=== PATIENT | male | born 1930 | race Caucasian/White ===

== ENCOUNTER 2016-08-03 10:38 | Inpatient (IN) | payer MEDICARE ==
--- NOTE | ~2016-08-03 | CN ---
Consultation Report [facility] [address] [place]. [address] NAME: SHAUN CARLOS : 30 STATUS : ADM Adrian PAT#: [id number] AGE: 86 ADM/REG DATE : 08/03/16 MR#: [id number] REPORT SERV DATE: 08/04/16 DICTATED BY: KERMIT SEYMOUR DATE: 08/03/16 REPORT STATUS : Draft TRANSCRIBED BY: DANIEL DATE: 08/03/16 UROLOGY CONSULT DATE OF CONSULTATION: This consult is from Dr. Gonzales regarding gross hematuria and right ureteral finding on CT scan. CHIEF COMPLAINT: Blood in my urine. HISTORY: This is a long-time patient of Dr. Robbins for gross hematuria intermittently as well as BPH. He has pancytopenia for which he sees Dr. Jose Cortes. He was last worked up for his hematuria with a cytology and cystoscopy in January of last year. This was positive only for BPH. He presents today after a 3-day history of gross hematuria. The patient states that he was not having any dysuria prior to the hematuria. On presentation to the emergency room, his INR was 5.0. He was also complaining of pain in his lower abdomen, specifically on the right side. He also has a productive cough. He denies any difficulty passing his urine. He also denies any clots in his urine. He is admitted to the Hospitalist Service and we are consulted. His CT scan officially shows mild right hydronephrosis. I also see some perinephric stranding. They come in on some hypodense material in the region of the right ureteropelvic junction and proximal ureter. They state this may represent a hematoma, blood products in the renal collecting system, or underlying mass. PAST MEDICAL HISTORY: Chronic pancytopenia, intermittent gross hematuria, BPH, coronary artery disease, obstructive sleep apnea requiring CPAP, hyperlipidemia, gastroesophageal reflux disease, Turner's esophagus, paroxysmal atrial fibrillation, depression, remote TIA, back pain chronic, history of L1 compression fracture, history of a pacer and AICD, and chronic kidney disease. PAST SURGICAL HISTORY: Coronary artery bypass grafting x3, pacer AICD placement, kyphoplasty, and coronary artery stents. ALLERGIES: NO KNOWN DRUG ALLERGIES. MEDICATIONS: At home; aspirin 81 mg a day, Lipitor, calcium with vitamin D, vitamin D, Klonopin, Benadryl, Nexium, Proscar, furosemide, isosorbide mononitrate, oxycodone 15 mg four times daily as needed, Zoloft, and Coumadin 3.5 mg a day. REVIEW OF SYSTEMS: GENERAL: Denies fever, chills. NEUROLOGIC: As above. HEART: As above. GI: Denies symptoms. : As above. Consultation Report [address] [place]. [address] NAME: SHAUN CARLOS : 30 STATUS : ADM Adrian PAT#: [id number] AGE: 86 ADM/REG DATE : 08/03/16 MR#: [id number] REPORT SERV DATE: 08/04/16 DICTATED BY: KERMIT SEYMOUR DATE: 08/03/16 REPORT STATUS : Draft TRANSCRIBED BY: DANIEL DATE: 08/03/16 MUSCULOSKELETAL: As above. LUNGS: As above. PHYSICAL EXAMINATION: VITAL SIGNS: Temperature 97.8, pulse of 87, respirations of 17. He is saturating 93% on 2 L nasal cannula. Blood pressure is 141/86. GENERAL: He is in no acute distress. NEUROLOGIC: Alert and oriented x3. PSYCHIATRIC: Appropriate. HEENT: Facial features symmetric. Eyes, sclerae anicteric. NECK: Supple. LUNGS: He has mild rhonchi bilaterally. EXTREMITIES: No edema. CARDIOVASCULAR: Irregularly irregular rhythm. ABDOMEN: Soft, nontender. His bladder is not palpable. : He has a normal circumcised phallus, bilateral descended testes without masses which are nontender. RECTAL: Deferred. LABORATORY STUDIES: White count of 1.7, hemoglobin 11.8, hematocrit of 35, platelet count of 158. INR of 5, PT 46.1, PTT of 63.2. Creatinine of 1.38, BUN of 20. Urinalysis was positive for nitrites, negative for leukocyte esterase, greater than 182 red blood cells, 0 white blood cells, rare bacteria. PH of 6, 100 protein, [address] scan as stated above. PROCEDURE IN DETAIL: After sterile prep and drape, a 22-Kazakh 3-way catheter was passed into the patient's bladder. The balloon was inflated with 30 mL of sterile water and seated at the bladder neck. 100 mL of very concentrated cloudy foul-smelling urine was drained from the patient's bladder. A portion of this was collected in a urinalysis cup to be sent to the microbiology lab for Gram-stain and culture. I hand irrigated the patient's bladder with 100 mL of sterile water. The irrigant cleared completely after the first syringe. No clots were noted. I placed the catheter on continuous bladder irrigation. Even at the slowest drip, the urine was the same color as the irrigant. IMPRESSION: 1. Urinary tract infection. 2. Hematuria/concentrated urine. 3. Uncertain finding in the right proximal ureter. Perhaps a sloughed papilla? PLAN: 1. I collected a catheterized urine specimen for Gram-stain and culture. Maybe the Gram- stain can help guide antibiotic therapy over the weekend, waiting for culture results. 2. Continue the continuous bladder irrigation through the night. We may be able to discontinue this tomorrow if the urine remains completely clear. 3. After his infection is treated and his INR is corrected, he will need a repeat CT scan Consultation Report [address] [address] NAME: SHAUN CARLOS : 30 STATUS : ADM Adrian PAT#: [id number] AGE: 86 ADM/REG DATE : 08/03/16 MR#: [id number] REPORT SERV DATE: 08/04/16 DICTATED BY: KERMIT SEYMOUR DATE: 08/03/16 REPORT STATUS : Draft TRANSCRIBED BY: DANIEL DATE: 08/03/16 to re-evaluate the right ureteral finding. VAIBHAV/DANIEL Kermit Seymour M.D. / [id number] CC: Mana Gonzales M.D.
--- NOTE | ~2016-08-03 | HP ---
History And Physical [facility] [address] [place]. [address] NAME: SHAUN CARLOS : 30 STATUS : ADM Adrian PAT#: [id number] AGE: 86 ADM/REG DATE : 08/03/16 MR#: [id number] REPORT SERV DATE: 08/03/16 DICTATED BY: LILIANE PIAZ DATE: 08/03/16 REPORT STATUS : Draft TRANSCRIBED BY: MODSmith DATE: 08/03/16 DATE OF ADMISSION: 08/03/2016 HISTORY OF PRESENT ILLNESS: The patient is very pleasant 86-year-old male, who presented to [facility] accompanied with . He reported that he started to have hematuria three days ago, and he was also complaining of pain in the lower abdomen, specifically on the right side. He denies any fever. No rash. No chest pain. No shortness of breath. He is having mild cough. No constipation. No diarrhea. PAST MEDICAL HISTORY: Past medical history was collected from the patient, from his , as well as from the medical records. The patient has history of chronic pancytopenia and he had multiple evaluation by oncologist Dr Jose Cortes, and even bone marrow biopsy was done, and eventually Dr. Jose Cortes came to the conclusion that his pancytopenia is at baseline for him, and it is normal for him. Other medical problems include coronary artery disease with a history of stents in the heart, history of coronary artery bypass grafting, history of BPH, history of obstructive sleep apnea on CPAP, hyperlipidemia, GERD, Turner's esophagus, history of paroxysmal atrial fibrillation on chronic Coumadin therapy, history of depression, history of remote TIA, chronic back pain, history of L1 compression fractures, history of pacer AICD placement, and chronic kidney disease. PAST SURGICAL HISTORY: Includes coronary artery bypass grafting x3, pacer AICD placement, kyphoplasty, and the stent in his heart. The patient's reported that initially it was for that the patient has Parkinson disease, but now Parkinson disease is ruled out. The patient had hematuria previously. The patient had a normal echocardiogram in 2016, when he was hospitalized, he had ejection fraction of 50% with normal right ventricular size and mild diastolic dysfunction, and moderate left atrial enlargement, SOCIAL HISTORY: The patient quit smoking 30 years ago. Used to smoke one pack per day. No alcohol. No recreational drug use. He lives with his . He has grownup daughters. FAMILY HISTORY: Mother of old age at age of 83, they do not know what medical problems she had. Father of a heart attack. ALLERGIES: NO KNOWN DRUG ALLERGIES. HOME MEDICATIONS: Include aspirin 81 mg a day, Lipitor 40 mg a day, calcium with vitamin D 500 mg daily, vitamin D 2000 units daily, Klonopin 2 mg p.o. at bedtime, Benadryl 25 mg at bedtime, Nexium 20 mg p.o. b.i.d., Proscar 5 mg daily, furosemide 20 mg p.o. three times a week as needed for lower extremity edema, isosorbide mononitrate 10 mg a day, oxycodone 15 mg four times daily as needed, Zoloft 50 mg daily, and Coumadin 3.5 mg daily. REVIEW OF SYSTEMS: All 14-point review of systems was done and negative except what is stated in the history of present illness. PHYSICAL EXAMINATION: History And Physical [address] [address] NAME: SHAUN CARLOS : 30 STATUS : ADM Adrian PAT#: [id number] AGE: 86 ADM/REG DATE : 08/03/16 MR#: [id number] REPORT SERV DATE: 08/03/16 DICTATED BY: LILIANE PAIZ DATE: 08/03/16 REPORT STATUS : Draft TRANSCRIBED BY: DANIEL DATE: 08/03/16 GENERAL: Well-nourished, well-developed male, not in acute distress, resting quietly. VITAL SIGNS: Blood pressure 111/60, temperature 97.5, heart rate 78, respirations 17, and oxygen saturation 96% on room air. HEENT: Head is atraumatic, normocephalic. Conjunctivae clear. Pupils are equal and reactive to light and accommodation. Extraocular muscles are intact. NECK: Supple. Trachea is midline. LYMPHATICS: No supraclavicular or cervical lymphadenopathy. LUNGS: Diminished breath sounds bilaterally with mild rhonchi, slightly decreased respiratory effort. CARDIOVASCULAR: Irregular rate and rhythm. Point of maximal impulse not displaced. ABDOMEN: Soft. There is mild tenderness in the right lower quadrant, but there is no guarding, no rebound. There is a mild tenderness in the right flank area, otherwise benign abdominal examination in all abdominal quadrants. Positive normoactive bowel sounds. EXTREMITIES: No clubbing or cyanosis. No edema. SKIN: Normal color, slightly decreased turgor. NEUROLOGIC: He is awake, alert, and oriented to time, place, and person. LABORATORY RESULTS: White count 1.7, hemoglobin 11.8, hematocrit 35, and platelet count 158. PTT 63.2, PT 46.1, and INR 5. Sodium 138, potassium 4.2, chloride 105, carbon dioxide 28, BUN 20, creatinine 1.38, and blood sugar 114. ALT 14 and AST 12. Urinalysis showed positive nitrates more than 182 red blood cells, 0 white cells, moderate blood. CT of the abdomen and pelvis without contrast showed moderate right and small left pleural effusions with interstitial thickening and ground-glass density in the lungs suggestive of pulmonary edema, mild right hydronephrosis with some hyperdense material in the region of the right ureteropelvic junction and proximal right ureter which may represent hematoma, blood product in the renal collecting system or underlying mass. There is mild right perinephric stranding. Nonobstructing 3 mm left nephrolithiasis, atherosclerotic vascular disease as described with evidence of previous coronary artery bypass grafting. 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 Chronic diverticulosis without CT evidence of acute diverticulitis, stable small left hydrocele, diffuse bone demineralization with previous vertebral augmentation of L1 level and chronic compression deformities and L4 superior level. EKG showed atrial fibrillation with ventricularly paced rhythm, complex with nonspecific intraventricular block, rate of 80. ASSESSMENT AND PLAN: This is a very pleasant 86-year-old male with a past medical history of coronary artery disease; history of benign prostatic hyperplasia; history of chronic pancytopenia; history of paroxysmal atrial fibrillation, chronically on Coumadin, presented with: 1. Hematuria. 2. Right-sided hydronephrosis, questionable clot or tumor in the ureter. 3. Hematuria with mild amount of leukocyte esterase. 4. Supratherapeutic INR. 5. Some cough, questionable pulmonary edema on the CT of the chest. We will admit the patient to Cardiac Telemetry. Regarding his supratherapeutic INR, we are going to hold his Coumadin, and we will give him vitamin K, and also we will ask urologist to see the patient today for further evaluation of his hematuria. 6. History of coronary artery disease. No chest pain. Currently asymptomatic. We will History And Physical [address] [address] NAME: SHAUN CARLOS : 30 STATUS : ADM Adrian PAT#: [id number] AGE: 86 ADM/REG DATE : 08/03/16 MR#: [id number] REPORT SERV DATE: 08/03/16 DICTATED BY: LILIANE PAIZ DATE: 08/03/16 REPORT STATUS : Draft TRANSCRIBED BY: DANIEL DATE: 08/03/16 check his serial troponins. 7. Cough with some questionable pulmonary edema on the CT of the abdomen, we will order chest x-ray. If the patient is congested and having some chances of congestive heart failure, we may give him intravenous Lasix. 8. Chronic kidney disease with a creatinine level being 1.38. Looks like this is baseline for him. 9. The patient is stable. We will observe him in the CDU unit, and for his right-sided hydronephrosis, urologist will be consulted. /DANIEL Liliane Paiz M.D. / [id number] CC: Virginia Huntley M.D.
--- NOTE | ~2016-08-03 | CN ---
Consultation Report [facility] [address]. [address] NAME: SHAUN ABEBE : 30 STATUS : ADM IN PAT#: [id number] AGE: 86 ADM/REG DATE : 08/04/16 MR#: [id number] REPORT SERV DATE: 08/06/16 DICTATED BY: DATE: REPORT STATUS : Draft TRANSCRIBED BY: MODSmith DATE: 08/06/16 CONSULTATION DATE OF CONSULTATION: REASON FOR CONSULTATION: Acute kidney injury. CONSULTING PHYSICIAN: Mana Gonzales M.D. HISTORY OF PRESENT ILLNESS: Mr. Abebe is an 86-year-old white male with CKD at baseline of 1.3 to 1.5, who has chronic pancytopenia and history of hematuria in the past, followed by Urology. He presented to the hospital with gross hematuria and he has been hospitalized, getting continuous bladder irrigation, since the hematuria has improved. His creatinine bumped up to 2 yesterday, is down to 1.9. The states he is not eating and drinking as much as he should. He has not been receiving any diuretics. No IV fluids. I do not see any nephrotoxic agents on his medicine list. He does have a slight cough with upper respiratory congestion, but no shortness of breath, orthopnea, or nocturnal dyspnea. No fevers or chills. He has had no nausea, vomiting, or diarrhea. PAST MEDICAL HISTORY: CKD stage 3, moderate tricuspid valve regurgitation, EF of 45%, problems with hematuria, paroxysmal atrial fibrillation, chronic pancytopenia, obstructive sleep apnea, coronary artery disease, status post bypass and stenting, kyphoplasty, reflux, hyperlipidemia, TIA, compression fractures, and AICD. ALLERGIES: NONE. SOCIAL HISTORY: He is . No tobacco, but history of. No alcohol or illicit drug use. FAMILY MEDICAL HISTORY: No known kidney disease. MEDICATIONS: At the time of this consultation: Lipitor, Zithromax, Caltrate, Rocephin, Klonopin, Benadryl, Granix, Zoloft, Protonix, Proscar. REVIEW OF SYSTEMS: Twelve-point review of systems obtained and negative with the exception of that in HPI. PHYSICAL EXAMINATION: VITAL SIGNS: Temperature 97.1, blood pressure 105/60, pulse 96, respiratory rate 18, and O2 saturation is 93%. GENERAL: This is a pleasant, cooperative, white male. He is awake, alert, and oriented, in no acute distress. Answers questions appropriately. HEENT: Normocephalic and atraumatic. Conjunctivae clear. Sclerae anicteric. Pupils are equal and round. Oral mucosa is dry. NECK: Supple. Carotids are brisk. Neck veins flat. No lymphadenopathy. Consultation Report [facility] [address] [place]. [address] NAME: SHAUN ABEBE : 30 STATUS : ADM IN PAT#: [id number] AGE: 86 ADM/REG DATE : 08/04/16 MR#: [id number] REPORT SERV DATE: 08/06/16 DICTATED BY: DATE: REPORT STATUS : Draft TRANSCRIBED BY: MODL DATE: 08/06/16 RESPIRATIONS: Even and unlabored. He does have some coarse breath sounds anteriorly, but clear posteriorly. HEART: Rate is regular with 2/6 systolic ejection murmur. No rub or gallop. ABDOMEN: Soft and nontender. Bowel sounds active. No masses or hepatosplenomegaly. No bruits. No CVA tenderness. BACK: Within normal limits. EXTREMITIES: No edema, cyanosis, or clubbing. SKIN: Warm, dry, and intact. No unusual rash or skin lesions. NEUROLOGIC: No focal deficits. Mood and affect, pleasant and appropriate. PERTINENT LABS AND X-RAYS: He has the CT with right hydronephrosis that is mild. WBC is 1.1, hemoglobin and hematocrit 10 and 29, platelets 159,000. Sodium 136, potassium 4.1, chloride 104, CO2 of 26, BUN of 23, creatinine of 1.9, calcium 8.4. IMPRESSION: 1. Acute kidney injury. 2. Chronic kidney disease, stage 3. 3. Hematuria, on continuous bladder irrigation. 4. Mild right hydronephrosis. 5. History of congestive heart failure with ejection fraction of 45% and positive for AICD. 6. Chronic pancytopenia. PLAN/RECOMMENDATIONS: Acute kidney injury on CKD, stage 3. Creatinine is much better today. He does have some hypotension, but states that this is chronic for him. Agree with IV fluids x1 L with caution given his CHF. Follow labs, I's and O's. Cannot do urine study for eval on CBI. We will follow along with you. Further orders and recommendations pending clinical course. TEO/MODL NELLY Miller / [id number] CC: Mana Gonzales M.D.
--- NOTE | ~2016-08-03 | DS ---
Discharge Summary [place] [id number] [facility] [place]. [address] NAME: SHAUN CARLOS : 30 STATUS : DIS IN PAT#: [id number] AGE: 86 ADM/REG DATE : 08/04/16 MR#: [id number] REPORT SERV DATE: 08/10/16 DICTATED BY: LEOBRADO BA DATE: 08/09/16 REPORT STATUS : Draft TRANSCRIBED BY: DANIEL DATE: 08/09/16 ADMISSION DATE: 08/04/2016 DISCHARGE DATE: 08/09/2016 DIAGNOSES: 1. Hematuria, resolved. 2. Neutropenia. 3. Acute on chronic kidney disease. 4. Paroxysmal atrial fibrillation. CONSULTANTS: Urology, Dr. Seymour and Dr. Johnnie Robbins; Cardiology, Dr. Nikolas Jefferson; Nephrology, Dr. Aguilar. HOSPITALISTS: Dr. Mana Gonzales and Dr. Ba. FOLLOWUP: The patient is being discharged to home with home health physical therapy. The patient should follow with the primary care physician in one to two weeks. The patient is to follow up with urologist, Dr. Robbins, the following weeks, appointment already made. Also, the patient should follow up with his physician allergist immunologist, Dr. Jose Cortes, in two weeks and to follow up with his stations superintendent, Dr. Horton, and with [facility] with appointment already made 08/23/2016 at 10:15 a.m. DISCHARGE MEDICATIONS: Lipitor 40 mg p.o. q.h.s., Coreg 3.125 mg p.o. b.i.d., Os-Bright plus D one tab p.o. q.h.s., cholecalciferol 2000 units p.o. q.h.s., diphenhydramine 25 mg p.o. q.h.s. per home dose, Proscar 5 mg p.o. q.h.s., Nexium 20 mg p.o. b.i.d. per home dose, Zoloft 50 mg p.o. q.h.s., Klonopin 2 mg p.o. q.h.s., aspirin 81 mg p.o. q.h.s. to restart in six days, Roxicodone 15 mg p.o. four times a day p.r.n. per home dose, Lasix 20 mg p.o. three times a week p.r.n. per prior prescriber, warfarin has been decreased to 2 mg p.o. daily to restart in six days per Cardiology recommendations, albuterol MDI two puffs inhaled every four hours p.r.n. HOSPITAL COURSE: Please see H and P dictated by Dr. Mana Gonzales. This is an 86-year- old male with a past medical history of paroxysmal atrial fibrillation and coronary artery disease, status post AICD and history of Parkinson's, follows up with Dr. Horton of Cardiology. The patient presented with hematuria for the past three days. He does have a known history of chronic pancytopenia and being followed by hematology-oncologist, Dr. Jose Cortes as well. The patient is currently on aspirin and warfarin, and upon arrival to the ER, the patient's INR was supratherapeutic at 5, and also, the patient had some signs of questionable pulmonary edema with mild cough and signs of right-sided hydronephrosis. The patient was admitted to the Hospitalist Service and cared for by Dr. Mana Gonzales with a Urology consultation. Plata catheter was placed with bladder irrigation. The patient did not require cystoscopy per Urology. Also, the patient's warfarin was discontinued, and on admission, the patient was given some vitamin K by Dr. Gonzales for reversal of INR. Also, the patient was seen by [facility] Cardiology and seen by Dr. Jefferson during this hospital stay for suspected NSVT with a strip of approximately 8 to 9 beats. The patient was initiated on Coreg and it was continued and agreed upon by Cardiology. Also, the patient was seen by Discharge Summary [address] [address] NAME: SHAUN CARLOS : 30 STATUS : DIS IN PAT#: [id number] AGE: 86 ADM/REG DATE : 08/04/16 MR#: [id number] REPORT SERV DATE: 08/10/16 DICTATED BY: LEOBARDO BA DATE: 08/09/16 REPORT STATUS : Draft TRANSCRIBED BY: DANIEL DATE: 08/09/16 Nephrology for acute on chronic kidney disease. He was empirically treated with antibiotics as well as by Dr. Gonzales for possible underlying UTI, although not truly confirmed. The patient also was seen by the physician allergist immunologist, Dr. Ojeda, during this hospital course for neutropenia, and the patient was initiated on Neupogen by Hematology with improvement of cell lines and also recommended for the patient to follow up with his primary physician allergist immunologist, Dr. Jose Cortes. At the time of discharge, the patient was voiding well without any hematuria and all specialists had signed off and approved for discharge. Also, Cardiology recommended for the patient to restart his warfarin in six days and already has an appointment with Dr. Horton in [facility]in [facility] as well. The patient and also were informed about all the recommendations and appointments and all medication changes. The patient was discharged to home in stable condition, to follow up as an outpatient. Also, please note, during this hospital course, the patient's AICD was interrogated with no noted events or changes made and followed by Cardiology. This discharge required greater than 30 minutes. DICTATED BY: Virginia FerreiraH/WILLAL Leobardo Ba M.D. / [id number] CC: Virginia Ferreira M.D. Robert Berglund, M.D. Marty Scheinberg, M.D. Davey B. Daniel, M.D.
--- NOTE | ~2016-08-03 | CN ---
Consultation Report [facility] [address] [place]. [address] NAME: SHAUN CARLOS : 30 STATUS : ADM IN [facility]#: [id number] AGE: 86 ADM/REG DATE : 08/04/16 MR#: [id number] REPORT SERV DATE: 08/07/16 DICTATED BY: STEPHANY JEFFERSON DATE: 08/07/16 REPORT STATUS : Draft TRANSCRIBED BY: MODL DATE: 08/07/16 CARDIOLOGY CONSULTATION DATE OF CONSULTATION: 08/07/2016 REASON FOR CONSULTATION: Reported congestive heart failure. Nonsustained ventricular tachycardia. REQUESTING PHYSICIAN: Mana Gonzales M.D. HISTORY OF PRESENT ILLNESS: The patient is an 86-year-old male, who presented for evaluation for hematuria. Previous history of intermittent gross hematuria and benign prostatic hypertrophy. The patient reported 3 days of gross hematuria prior to presentation. INR on presentation was markedly elevated at 5. Originally reported to have right hydronephrosis and a subsequent Plata catheter placed with continuous bladder irrigation with resolution of hematuria. Subsequent ultrasound demonstrated resolution of hydronephrosis. The patient denies chest pain, palpitations, presyncope, or syncope. The patient denies dyspnea on exertion or edema. Consultation requested due to reported nonsustained ventricular tachycardia. Review of the telemetry strip from 1817 hours on 03 August 2016, demonstrates wide-complex rhythm at a rate of approximately 100 beats per minute. Review of additional telemetry strips demonstrate similar tracings with greater detail which clearly demonstrate a ventricular paced rhythm at a similar rate. The patient has known chronic anticoagulation secondary to chronic atrial fibrillation. As stated with the exception of hematuria and some intermittent mild lower abdominal pain, the patient has had no cardiac complaints. He denies defibrillator discharge. He has a history of coronary artery disease with remote coronary artery bypass grafting. PAST MEDICAL HISTORY: 1. Coronary artery disease-status post remote coronary artery bypass grafting. 2. Ischemic cardiomyopathy-ejection fraction 45% by echo during this hospitalization. This is unchanged from previous records. 3. History of nonsustained ventricular tachycardia with previous defibrillator placement. 4. 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 5. History of atrial fibrillation. 6. Chronic anticoagulation secondary to atrial fibrillation for stroke prophylaxis. 7. Chronic pancytopenia. SOCIAL HISTORY: Remote tobacco use. Denies alcohol or illicit drug use. FAMILY HISTORY: Noncontributory. REVIEW OF SYSTEMS: Negative for all organ systems except per the history of present illness. Consultation Report [place] [id number] [place]. [id number] NAME: SHAUN CARLOS : 30 STATUS : ADM IN PAT#: [id number] AGE: 86 ADM/REG DATE : 08/04/16 MR#: [id number] REPORT SERV DATE: 08/07/16 DICTATED BY: STEPHANY JEFFERSON DATE: 08/07/16 REPORT STATUS : Draft TRANSCRIBED BY: DANIEL DATE: 08/07/16 IMPRESSION: 1. History of nonsustained ventricular tachycardia with inducible ventricular tachycardia. Review of tracings from telemetry during hospitalization appeared to be more consistent with short runs of ventricularly paced rhythm and not ventricular tachycardia. Device interrogation is being performed today for evaluation of the same. The patient has been begun on carvedilol and I think this is a reasonable consideration. We would recommend continuation of the same. 2. Hematuria-this is in the setting of supratherapeutic INR although the patient did continue to have some bleeding as INR normalized. We would recommend discharge off Jantoven at this time with the reconsideration for initiation of Jantoven in the outpatient cardiology setting in several weeks. I will defer further evaluation of the hematuria to Urology. It would appear that we will plan for cystoscopy in the near future as an outpatient. 3. Chronic systolic congestive heart failure-no evidence of volume overload. The patient reports mild chronic dyspnea which I do not believe is trivial of the same. The patient is clinically euvolemic. No changes in medicines with the exception of carvedilol as described above. We will sign off and be available as necessary. We will arrange for followup with the patient's primary manager special events, Dr. Horton. Again recommend continuation of current carvedilol dose and holding Coumadin until followup appointment in Cardiology. Thank you for the opportunity to see the patient in consultation. XIOMARA/DANIEL Kenneth Jefferson M.D. / [id number] CC: Mana Gonzales M.D. Thad Elmore M.D.
[~2016-08-03 10:38] MED LIST: ASAB PO; ATV1 PO; BEN25 PO; C5 PO; COREG3 PO; COUMADIN4 MG PO; FISH OIL1200 MG PO; FORTICAL200 MG/ACT NAS; JANTOVEN1 MG PO; JANTOVEN5 MG PO; KLONO1 PO; KLONO2 PO; KLONO5 PO; L20 PO; LEXAPRO10 PO; LIPITOR40 PO; MONOKET PO; MULTIPLE VIT PO; MULTIVITAMI1 PO; NEXIUM20 M1 PO; NEXIUM40 PO; NITROQUICK0.4 MG SL; NITROSTAT0.3 MG SL; NITROSTAT0.4 MG SL; OS500+D PO; PERCOCET1 TA4 PO; ROXICODONE15 MG PO; SAW PALMETTO PO; STERAPRED DS10 MG; VITAMIN D1000 UNI1 PO; VITAMIN D2000 UNIT PO; VITAMIN D31000 UNIT PO; VOLTAREN1 % TOP; ZOCOR20 PO
[2016-08-03 10:56] LABS: WBC (NOT ORDERED) (RFLEX) 0 (0-5)
[2016-08-03 11:08] LABS: BASOPHILS 0 %; EOSINOPHILS 8.9 %; EOSINOPHILS ABSOLUTE 0.15 10/3/uL (0.0-0.53); HEMOGLOBIN 11.8 g/dL (13.6-17.8); LYMPHOCYTES ABSOLUTE 0.84 10/3/uL (0.67-4.30); MEAN CORPUS HGB CONC 33.7 g/dL (32.0-36.0); MEAN CORPUSCULAR HEMOGLOB 31.1 pg (26.0-34.0); MEAN CORPUSCULAR VOLUME 92.3 fL (80-100); MEAN PLATELET VOLUME 9.6 fL (9.2-13.0); MONOCYTES 8.9 %; MONOCYTES ABSOLUTE 0.15 10/3/uL (0.21-1.20); NEUTROPHILS 32.2 %; NEUTROPHILS ABSOLUTE 0.54 10/3/uL (2.02-8.40); PLATELET COUNT 158 10/3/uL (150-400); RBC DISTRIBUTION WIDTH 14.3 % (12.0-16.0); RED CELL COUNT 3.79 10/6/uL (4.7-6.1); WHITE BLOOD CELLS 1.7 10/3/uL (4.5-10.5)
[2016-08-03 11:09] LABS: ASCORBIC ACID (UR NOT ORDER) NEG (NEG); BILIRUBIN, URINE NEGATIVE (NEG); ER URINALYSIS TAT 0 Hrs 13 Mins; KETONE, URINE NEGATIVE (NEG); LEUKOCYTE ESTERASE(NOT OR NEG (NEG); NITRITE (URINE) POS (NEG)
[2016-08-03 11:10] LABS: MANUAL DIFF NO %
[2016-08-03 11:18] LABS: PARTIAL THROMBO TIME 63.2 SEC (22.5-37.2)
[2016-08-03 11:20] LABS: PROTIME (NOT ORD) 46.1 SEC (12.0-14.5)
[2016-08-03 11:24] LABS: A/G RATIO 0.9 (0.7-1.9); ALBUMIN 3.3 G/DL (3.5-5.0); BUN (BLOOD UREA NITROGEN) 20 MG/DL (6-23); CHLORIDE, SERUM 105 MMOL/L (96-112); CO2 (CARBON DIOXIDE) 28 MMOL/L (24-34); CREATININE 1.38 MG/DL (0.70-1.30); GFR AFRICAN AMERICAN 53 ML/MIN (>=60); GFR NON AFRICAN AMERICAN 46 ML/MIN (>=60); GLOBULIN 3.8 G/DL (2.5-4.1); POTASSIUM, SERUM 4.2 MMOL/L (3.5-5.3); SGOT(AST) 12 U/L (5-40); SGPT(ALT) 14 U/L (5-65); SODIUM, SERUM 138 MMOL/L (135-148); TOTAL BILIRUBIN 0.4 MG/DL (0-1.2); TOTAL PROTEIN 7.1 G/DL (6.0-8.5)
[2016-08-03 11:25] LABS: ALKALINE PHOSPHATASE 103 U/L (45-117); GLUCOSE, SERUM 114 MG/DL (60-99)
[2016-08-03 11:39] LABS: EOSINOPHILS 7 %; EOSINOPHILS ABSOLUTE (CALC) 0.12 10/3/uL (0.0-0.53); ER DIFF TAT 0 Hrs 35 Mins; LYMPHOCYTES 46 %; LYMPHOCYTES ABSOLUTE (CALC) 0.78 10/3/uL (0.67-4.30); MONOCYTES 9 %; MONOCYTES ABSOLUTE (CALC) 0.15 10/3/uL (0.21-1.20); NEUTROPHILS ABSOLUTE (CALC) 0.65 10/3/uL (2.02-8.40); PLATELET ESTIMATE ADQ (ADEQUATE); RBC MORPHOLOGY NORM (NORMAL); SEGMENTED NEUTROPHIL (0) 38 %; TOTAL NUCLEATED CELLS 100
[2016-08-03] MEDS ORDERED: LIPITOR40 PO (14:04)
[2016-08-03] MEDS ORDERED: MONOKET PO (14:04)
[2016-08-03] MEDS ORDERED: KLONO2 PO (14:04)
[2016-08-03] MEDS ORDERED: JANTOVEN1 MG PO (14:05)
[2016-08-03] MEDS ORDERED: ASAB PO (14:05)
[2016-08-03] MEDS ORDERED: VITAMIN D2000 UNIT PO (14:06)
[2016-08-03] MEDS ORDERED: PROSCAR5 PO (14:06)
[2016-08-03] MEDS ORDERED: OS500+D PO (14:06)
[2016-08-03] MEDS ORDERED: NEXIUM20 M1 PO (14:06)
[2016-08-03] MEDS ORDERED: BEN25 PO (14:07)
[2016-08-03] MEDS ORDERED: ROXICODONE15 MG PO (14:07)
[2016-08-03] MEDS ORDERED: L20 PO (14:08)
[2016-08-03] MEDS ORDERED: ZOL50 PO (14:12)
[2016-08-03 16:29] LABS: TROPONIN I <0.02 NG/ML (<0.05)
[2016-08-03 16:33] LABS: HEMATOCRIT 36.1 % (40.0-51.0); HEMOGLOBIN 11.7 g/dL (13.6-17.8)
[2016-08-03 22:23] LABS: ASCORBIC ACID (UR NOT ORDER) NEG (NEG); BILIRUBIN, URINE NEGATIVE (NEG); KETONE, URINE NEGATIVE (NEG); LEUKOCYTE ESTERASE(NOT OR NEG (NEG); WBC (NOT ORDERED) (RFLEX) 3 (0-5)
[2016-08-04 00:53] LABS: HEMATOCRIT 34.3 % (40.0-51.0); HEMOGLOBIN 11.6 g/dL (13.6-17.8)
[2016-08-04 09:08] LABS: HEMATOCRIT 35.6 % (40.0-51.0); HEMOGLOBIN 11.8 g/dL (13.6-17.8); MANUAL DIFF YES %; MEAN CORPUS HGB CONC 33.1 g/dL (32.0-36.0); MEAN CORPUSCULAR HEMOGLOB 30.6 pg (26.0-34.0); MEAN CORPUSCULAR VOLUME 92.2 fL (80-100); MEAN PLATELET VOLUME 9.1 fL (9.2-13.0); PLATELET COUNT 152 10/3/uL (150-400); RBC DISTRIBUTION WIDTH 14.2 % (12.0-16.0); RED CELL COUNT 3.86 10/6/uL (4.7-6.1); WHITE BLOOD CELLS 1.2 10/3/uL (4.5-10.5)
[2016-08-04 09:19] LABS: BUN (BLOOD UREA NITROGEN) 23 MG/DL (6-23); CALCIUM, SERUM 8.4 MG/DL (8.5-10.4); CHLORIDE, SERUM 105 MMOL/L (96-112); CO2 (CARBON DIOXIDE) 30 MMOL/L (24-34); GFR AFRICAN AMERICAN 39 ML/MIN (>=60); GFR NON AFRICAN AMERICAN 33 ML/MIN (>=60); GLUCOSE, SERUM 120 MG/DL (60-99); POTASSIUM, SERUM 4.5 MMOL/L (3.5-5.3); SODIUM, SERUM 140 MMOL/L (135-148)
[2016-08-04 09:40] LABS: BAND NEUTROPHILS 7 %; EOSINOPHILS 2 %; EOSINOPHILS ABSOLUTE (CALC) 0.02 10/3/uL (0.0-0.53); LYMPHOCYTES 38 %; LYMPHOCYTES ABSOLUTE (CALC) 0.46 10/3/uL (0.67-4.30); MONOCYTES 9 %; MONOCYTES ABSOLUTE (CALC) 0.11 10/3/uL (0.21-1.20); NEUTROPHILS ABSOLUTE (CALC) 0.61 10/3/uL (2.02-8.40); PLATELET ESTIMATE ADQ (ADEQUATE); RBC MORPHOLOGY NORM (NORMAL); SEGMENTED NEUTROPHIL (0) 44 %; TOTAL NUCLEATED CELLS 100
[2016-08-04 11:12] LABS: INTERNATIONAL NORMAL RATI 2.8 UNITS (-); PROTIME (NOT ORD) 29.4 SEC (12.0-14.5)
[2016-08-05 04:35] LABS: PROTIME (NOT ORD) 22.9 SEC (12.0-14.5)
[2016-08-05 04:36] LABS: HEMOGLOBIN 10.3 g/dL (13.6-17.8); MEAN CORPUS HGB CONC 33.7 g/dL (32.0-36.0); MEAN CORPUSCULAR HEMOGLOB 30.9 pg (26.0-34.0); MEAN CORPUSCULAR VOLUME 91.9 fL (80-100); MEAN PLATELET VOLUME 9.9 fL (9.2-13.0); PLATELET COUNT 156 10/3/uL (150-400); RBC DISTRIBUTION WIDTH 14.1 % (12.0-16.0); RED CELL COUNT 3.33 10/6/uL (4.7-6.1)
[2016-08-05 04:38] LABS: HEMATOCRIT 30.6 % (40.0-51.0); WHITE BLOOD CELLS 0.7 10/3/uL (4.5-10.5)
[2016-08-05 04:39] LABS: CALCIUM, SERUM 8.2 MG/DL (8.5-10.4); CHLORIDE, SERUM 104 MMOL/L (96-112); CO2 (CARBON DIOXIDE) 28 MMOL/L (24-34); CREATININE 2.08 MG/DL (0.70-1.30); GFR AFRICAN AMERICAN 32 ML/MIN (>=60); GFR NON AFRICAN AMERICAN 28 ML/MIN (>=60); GLUCOSE, SERUM 141 MG/DL (60-99); MANUAL DIFF YES %; POTASSIUM, SERUM 4.1 MMOL/L (3.5-5.3); SODIUM, SERUM 137 MMOL/L (135-148)
[2016-08-05 04:40] LABS: BUN (BLOOD UREA NITROGEN) 27 MG/DL (6-23)
[2016-08-05 06:19] LABS: SEGMENTED NEUTROPHIL (0) 35 %; TOTAL NUCLEATED CELLS 100
[2016-08-05 06:20] LABS: BAND NEUTROPHILS 31 %; EOSINOPHILS 2 %; EOSINOPHILS ABSOLUTE (CALC) 0.01 10/3/uL (0.0-0.53); LYMPHOCYTES 27 %; LYMPHOCYTES ABSOLUTE (CALC) 0.19 10/3/uL (0.67-4.30); MONOCYTES 5 %; MONOCYTES ABSOLUTE (CALC) 0.04 10/3/uL (0.21-1.20); NEUTROPHILS ABSOLUTE (CALC) 0.46 10/3/uL (2.02-8.40); PLATELET ESTIMATE ADQ (ADEQUATE); POLYCHROMASIA 1+ (2-5/OIF) (0-1/OIF); TOXIC GRANULATION 1+
[2016-08-06 05:37] LABS: HEMATOCRIT 29.9 % (40.0-51.0); HEMOGLOBIN 10.1 g/dL (13.6-17.8); MEAN CORPUS HGB CONC 33.8 g/dL (32.0-36.0); MEAN CORPUSCULAR HEMOGLOB 30.4 pg (26.0-34.0); MEAN CORPUSCULAR VOLUME 90.1 fL (80-100); MEAN PLATELET VOLUME 9.4 fL (9.2-13.0); PLATELET COUNT 153 10/3/uL (150-400); RBC DISTRIBUTION WIDTH 14.2 % (12.0-16.0); RED CELL COUNT 3.32 10/6/uL (4.7-6.1)
[2016-08-06 05:38] LABS: MANUAL DIFF YES %; WHITE BLOOD CELLS 1.1 10/3/uL (4.5-10.5)
[2016-08-06 05:55] LABS: BUN (BLOOD UREA NITROGEN) 23 MG/DL (6-23); CALCIUM, SERUM 8.4 MG/DL (8.5-10.4); CHLORIDE, SERUM 104 MMOL/L (96-112); CO2 (CARBON DIOXIDE) 26 MMOL/L (24-34); CREATININE 1.91 MG/DL (0.70-1.30); FERRITIN 150 NG/ML (26-388); GFR AFRICAN AMERICAN 36 ML/MIN (>=60); GFR NON AFRICAN AMERICAN 31 ML/MIN (>=60); GLUCOSE, SERUM 117 MG/DL (60-99); IRON BINDING CAPACITY 165 MCG/DL (250-450); IRON, SERUM 14 MCG/DL (35-150); POTASSIUM, SERUM 4.1 MMOL/L (3.5-5.3); SODIUM, SERUM 136 MMOL/L (135-148)
[2016-08-06 06:13] LABS: BAND NEUTROPHILS 11 %; EOSINOPHILS 11 %; EOSINOPHILS ABSOLUTE (CALC) 0.12 10/3/uL (0.0-0.53); LYMPHOCYTES 13 %; LYMPHOCYTES ABSOLUTE (CALC) 0.14 10/3/uL (0.67-4.30); MONOCYTES 6 %; MONOCYTES ABSOLUTE (CALC) 0.07 10/3/uL (0.21-1.20); NEUTROPHILS ABSOLUTE (CALC) 0.77 10/3/uL (2.02-8.40); SEGMENTED NEUTROPHIL (0) 59 %; TOTAL NUCLEATED CELLS 100
[2016-08-06 06:14] LABS: PLATELET ESTIMATE ADQ (ADEQUATE); RBC MORPHOLOGY NORM (NORMAL)
[2016-08-06 11:43] LABS: INTERNATIONAL NORMAL RATI 1.5 UNITS (-)
[2016-08-06 11:50] LABS: PROTIME (NOT ORD) 18.4 SEC (12.0-14.5)
[2016-08-07 05:31] LABS: HEMATOCRIT 31.1 % (40.0-51.0); HEMOGLOBIN 10.5 g/dL (13.6-17.8); MEAN CORPUS HGB CONC 33.8 g/dL (32.0-36.0); MEAN CORPUSCULAR HEMOGLOB 30.6 pg (26.0-34.0); MEAN CORPUSCULAR VOLUME 90.7 fL (80-100); MEAN PLATELET VOLUME 9.8 fL (9.2-13.0); PLATELET COUNT 164 10/3/uL (150-400); RBC DISTRIBUTION WIDTH 14.5 % (12.0-16.0); RED CELL COUNT 3.43 10/6/uL (4.7-6.1)
[2016-08-07 05:37] LABS: INTERNATIONAL NORMAL RATI 1.4 UNITS (-); PROTIME (NOT ORD) 16.9 SEC (12.0-14.5)
[2016-08-07 05:39] LABS: MANUAL DIFF YES %; WHITE BLOOD CELLS 1.2 10/3/uL (4.5-10.5)
[2016-08-07 05:41] LABS: BUN (BLOOD UREA NITROGEN) 23 MG/DL (6-23); CALCIUM, SERUM 8.4 MG/DL (8.5-10.4); CHLORIDE, SERUM 106 MMOL/L (96-112); CO2 (CARBON DIOXIDE) 25 MMOL/L (24-34); GFR AFRICAN AMERICAN 39 ML/MIN (>=60); GFR NON AFRICAN AMERICAN 33 ML/MIN (>=60); GLUCOSE, SERUM 105 MG/DL (60-99); POTASSIUM, SERUM 4.1 MMOL/L (3.5-5.3); SODIUM, SERUM 138 MMOL/L (135-148)
[2016-08-07 06:27] LABS: BAND NEUTROPHILS 26 %; EOSINOPHILS 12 %; EOSINOPHILS ABSOLUTE (CALC) 0.14 10/3/uL (0.0-0.53); LYMPHOCYTES 18 %; LYMPHOCYTES ABSOLUTE (CALC) 0.22 10/3/uL (0.67-4.30); MONOCYTES 2 %; MONOCYTES ABSOLUTE (CALC) 0.02 10/3/uL (0.21-1.20); NEUTROPHILS ABSOLUTE (CALC) 0.82 10/3/uL (2.02-8.40); PLATELET ESTIMATE ADQ (ADEQUATE); SEGMENTED NEUTROPHIL (0) 42 %; TOTAL NUCLEATED CELLS 50
[2016-08-07 06:28] LABS: POLYCHROMASIA 1+ (2-5/OIF) (0-1/OIF)
[2016-08-08 04:46] LABS: HEMATOCRIT 32.8 % (40.0-51.0); MEAN CORPUS HGB CONC 33.5 g/dL (32.0-36.0); MEAN CORPUSCULAR HEMOGLOB 30.4 pg (26.0-34.0); MEAN CORPUSCULAR VOLUME 90.6 fL (80-100); MEAN PLATELET VOLUME 9.5 fL (9.2-13.0); PLATELET COUNT 170 10/3/uL (150-400); RED CELL COUNT 3.62 10/6/uL (4.7-6.1)
[2016-08-08 04:47] LABS: MANUAL DIFF YES %; WHITE BLOOD CELLS 1.9 10/3/uL (4.5-10.5)
[2016-08-08 04:52] LABS: INTERNATIONAL NORMAL RATI 1.4 UNITS (-); PROTIME (NOT ORD) 16.9 SEC (12.0-14.5)
[2016-08-08 04:59] LABS: BUN (BLOOD UREA NITROGEN) 24 MG/DL (6-23); CALCIUM, SERUM 8.5 MG/DL (8.5-10.4); CHLORIDE, SERUM 109 MMOL/L (96-112); CO2 (CARBON DIOXIDE) 23 MMOL/L (24-34); CREATININE 1.71 MG/DL (0.70-1.30); GFR AFRICAN AMERICAN 41 ML/MIN (>=60); GFR NON AFRICAN AMERICAN 35 ML/MIN (>=60); GLUCOSE, SERUM 124 MG/DL (60-99); SODIUM, SERUM 140 MMOL/L (135-148)
[2016-08-08 05:06] LABS: BAND NEUTROPHILS 29 %; EOSINOPHILS 10 %; EOSINOPHILS ABSOLUTE (CALC) 0.19 10/3/uL (0.0-0.53); LYMPHOCYTES 19 %; LYMPHOCYTES ABSOLUTE (CALC) 0.36 10/3/uL (0.67-4.30); MONOCYTES 4 %; MONOCYTES ABSOLUTE (CALC) 0.08 10/3/uL (0.21-1.20); NEUTROPHILS ABSOLUTE (CALC) 1.27 10/3/uL (2.02-8.40); SEGMENTED NEUTROPHIL (0) 38 %; TOTAL NUCLEATED CELLS 100
[2016-08-08 05:07] LABS: PLATELET ESTIMATE ADQ (ADEQUATE); RBC MORPHOLOGY NORM (NORMAL)
[2016-08-08 20:10] LABS: COPPER 101 ug/dL (70-140)
[2016-08-08 20:11] LABS: ZINC 45 ug/dL (60-120)
[2016-08-09 04:42] LABS: INTERNATIONAL NORMAL RATI 1.4 UNITS (-); PROTIME (NOT ORD) 17.4 SEC (12.0-14.5)
[2016-08-09] MEDS ORDERED: COREG3 PO (09:28)
[2016-08-09] MEDS ORDERED: JANTOVEN3 MG PO (09:29)
[2016-08-09] MEDS ORDERED: PROVHFA INH (09:30)
[2016-12-01] MEDS ORDERED: ROXICODONE15 MG PO (17:50)
[2016-12-01] MEDS ORDERED: MEG40 PO (17:51)
[2016-12-01] MEDS ORDERED: HEMOCYTE PLUS PO (17:51)
[2016-12-01] MEDS ORDERED: KLONO2 PO (17:52)
[2016-12-01] MEDS ORDERED: LIPITOR40 PO (17:52)
[2016-12-01] MEDS ORDERED: ZOL50 PO (17:52)
[2016-12-01] MEDS ORDERED: PROSCAR5 PO (17:53)
[2016-12-01] MEDS ORDERED: VENTOLIN HFA INH (17:53)
[2016-12-01] MEDS ORDERED: COREG3 PO (17:53)
[2016-12-01] MEDS ORDERED: ASAB PO (17:54)
[2016-12-01] MEDS ORDERED: L20 PO (17:55)
[2016-12-01] MEDS ORDERED: OS500+D PO (17:56)
[2016-12-01] MEDS ORDERED: NEXIUM20 M1 PO (17:56)
[2016-12-01] MEDS ORDERED: BEN25 PO (17:57)
[2016-12-01] MEDS ORDERED: VITAMIN D PO (17:57)
[2016-12-01] MEDS ORDERED: NITROSTAT0.4 MG SL (17:58)
== END 2016-08-09 10:48 | disposition home health service (06) | DRG 683 ==
LOC: ER 10:38 → CDU1 14:51 → 7NO 08-05 11:13
PROVIDERS: Hospitalist; Physician Assistant
PROC: 4B02XTZ Measurement of Cardiac Defibrillator, External Approach (ICD-10-PCS; principal; 2016-08-07)
DX: N17.9 Acute kidney failure, unspecified (principal); N39.0 Urinary tract infection, site not specified; I47.2 Ventricular tachycardia; D61.818 Other pancytopenia; I50.22 Chronic systolic (congestive) heart failure; J44.1 Chronic obstructive pulmonary disease with (acute) exacerbation; N13.30 Unspecified hydronephrosis; I25.10 Atherosclerotic heart disease of native coronary artery without angina pectoris; K57.90 Diverticulosis of intestine, part unspecified, without perforation or abscess without bleeding; N18.3 Chronic kidney disease, stage 3 (moderate); I48.0 Paroxysmal atrial fibrillation; Z95.810 Presence of automatic (implantable) cardiac defibrillator; Z79.01 Long term (current) use of anticoagulants; R31.0 Gross hematuria
CPT/HCPCS: 71020; 71250; 74176; 76775; 80048; 80053; 81001; 82525; 82728; 83540; 83550; 83735; 83880; 84484; 84630; 85014; 85018; 85025; 85610; 85730; 93005; 93306; 94640; 96374; 96375; 97110-GP; 97116-GP; 97161-GP; 99285; A9270-GY; G8978-CK-GP; G8979-CJ-GP; J1447; J2405